=== PATIENT | female | born 1975 | race African-American/Black ===

== ENCOUNTER 2019-06-06 08:16 | Emergency (ER) | payer BC ==
[2019-06-06 08:23] VITALS: BMI 28.3
--- NOTE | 2019-06-06 08:48 | PDOC ---
History of Present Illness - General Chief Complaint: Vaginal Bleeding Stated Complaint: VAGINAL BLEEDING Time Seen by Provider: 06/06/19 08:35 History Source: Patient Exam Limitations: No Limitations - History of Present Illness Initial Comments: 06/06/19 08:46 44yo F with PMH of HTN, ZEYAD (has required iron transfusions in the past) presenting to ED with complaints of heavy vaginal bleeding x2d. Patient says she has been on her period for around 2w now which is unusual and yesterday she started to have heavier bleeding using a total of 8-10 tampons and pads. She says it has been soaking through and has noticed clots as well. Endorses cramping. She had a D+C October 2018 at [facility] because of painful cramping with menstruation. PMH: see hpi PSH: none Meds: FeSO4 Allergies: nkda Past History - Past Medical History Allergies/Adverse Reactions: Allergies Allergy/AdvReac Type Severity Reaction Status Date / Time No Known Allergies Allergy Verified 06/06/19 08:22 COPD: No HTN: Yes - Suicide/Smoking/Psychosocial Hx Smoking History: Current every day smoker Number of Cigarettes Smoked Daily: 1 Information on smoking cessation initiated: No Drug/Substance Use Hx: Yes ([id number]) Review of Systems - Review of Systems Constitutional: No: Symptoms Reported HEENTM: No: Symptoms Reported Respiratory: No: Symptoms reported Cardiac (ROS): Yes: Lightheadedness ABD/GI: Yes: Nausea. No: Rectal Bleeding, Vomiting, Abdominal cramping : Yes: Other (vaginal bleeding) Musculoskeletal: No: Symptoms Reported Integumentary: No: Symptoms Reported Neurological: No: Symptoms reported *Physical Exam - Vital Signs Last Vital Signs Temp Pulse Resp BP Pulse Ox 98.5 F 109 H 18 138/85 100 06/06/19 08:18 06/06/19 08:18 06/06/19 08:18 06/06/19 08:18 06/06/19 08:18 - Physical Exam General Appearance: Yes: Nourished, Appropriately Dressed. No: Apparent Distress HEENT: positive: EOMI, SHENG. negative: Pale Conjunctivae Neck: positive: Trachea midline, Supple. negative: Lymphadenopathy (R), Lymphadenopathy (L) Respiratory/Chest: positive: Lungs Clear, Normal Breath Sounds Cardiovascular: positive: Regular Rhythm, S1, S2, Tachycardia. negative: Edema , JVD, Murmur Vascular Pulses: Dorsalis-Pedis (R): 2+, Doralis-Pedis (L): 2+ Female Pelvic Exam: positive: normal external exam, vaginal bleeding (with clots ) Gastrointestinal/Abdominal: positive: Normal Bowel Sounds, Soft. negative: Tender, Guarding, Rebound, Tenderness Musculoskeletal: negative: CVA Tenderness Extremity: positive: Normal Capillary Refill. negative: Swelling, Calf Tenderness Integumentary: positive: Normal Color, Dry, Warm. negative: Pale Neurologic: positive: dialysis clinical manager II-XII NML intact, Fully Oriented, Alert, Normal Mood/ Affect, Normal Response, Motor Strength 02/28 ED Treatment Course - LABORATORY CBC & Chemistry Diagram: 06/06/19 09:15 06/06/19 09:15 Medical Decision Making - Medical Decision Making 06/06/19 12:04 44yo F with PMH of HTN, ZEYAD (has required iron transfusions in the past) presenting to ED with complaints of heavy vaginal bleeding x2d. Patient says she has been on her period for around 2w now which is unusual and yesterday she started to have heavier bleeding using a total of 8-10 tampons and pads. She says it has been soaking through and has noticed clots as well. Endorses cramping. She had a D+C October 2018 at [facility] because of painful cramping with menstruation. Vitals: tachycardia PE: blood pooling in vaginal vault, clots extracted. No abdominal tenderness. vaginal bleeding likely due to uterine structure abnormalities or premenopausal. patient is tachycardic and felt lightheaded, will order labs including cbc, cmp type an screen, serum . TVUS will give fluids and zofran for nausea. 06/06/19 12:38 TVUS: leiomyoma in posterior uterus. No other abnormalities. Patient was informed of results, advised to follow up with pack train driver, patient says she can make appointment tomorrow. Safe for dc home, h/h at baseline. Given strict return precautions including increasing bleeding, lightheadedness, syncope. patient agreed with plan. DC home *DC/Admit/Observation/Transfer Diagnosis at time of Disposition: Vaginal bleeding, Leiomyoma - Discharge Dispostion Disposition: HOME Condition at time of disposition: Good Decision to Admit order: No - Referrals - Patient Instructions Printed Discharge Instructions: DI for Uterine Fibroids Additional Instructions: You were seen in the emergency room today for vaginal bleeding. The ultrasound report showed a fibroid. I recommend that you follow up with your Manager Interventional tomorrow; let them know you were seen in the emergency room. Please come back to the emergency room if you are using more than 2 pads an hour , bleeding gets heavier, you are feeling lightheaded, you pass out or if any new concerning symptom develops. Thank you - Post Discharge Activity Forms/Work/School Notes: Back to Work
[2019-06-06] MEDS ORDERED: SODIUM CHLORIDE 1,000 ML IV STA (08:52)
--- NOTE | 2019-06-06 08:52 | PDOC ---
Attending Attestation - Resident Resident Name: LindaSaSelene - ED Attending Attestation I have performed the following: I have examined & evaluated the patient, The case was reviewed & discussed with the resident, I agree w/resident's findings & plan - HPI HPI: 06/06/19 09:10 44 YOF with PMH anemia presenting with heavy VB x 2 weeks with passage of dark red blood and clots, soaking her pads and tampons. has h/o anemia from DUB requiring iron infusion last in October 2018 as well as requiring iron supplements and D&C +dizziness and nausea no v/d, urinary sx, abdominal pain, headache, f/c, back pain. - Physicial Exam PE: 06/06/19 08:50 Agree with the resident's HPI and PE as documented in the electronic medical record. NAD, well appearing, EOMI, PERRL, MMM, nl conjunctiva, anicteric; neck supple. lungs clear, RRR, abdomen soft nontender. no flank tenderness. Back nontender. PINEDA x4, no focal neuro deficits. No peripheral edema. normal color for ethnicity , WWP. pelvic exam with resident, copious blood clots in the vaginal vault, no CMT, no adnexal tenderness. 06/06/19 09:11 - Medical Decision Making 06/06/19 08:51 hpi as documented VS reviewed, wnl Vital Signs Temp Pulse Resp BP Pulse Ox 98.5 F 109 H 18 138/85 100 06/06/19 08:18 06/06/19 08:18 06/06/19 08:18 06/06/19 08:18 06/06/19 08:18 DDX Considered: Adenomyosis, Cervicitis, Dysfunctional uterine bleeding, Ectopic , Endometrial cancer, Hydatidiform mole, Implantation bleeding , IUD/contraceptives, Miscarriage, Placental abruption, Placenta previa, Polycystic ovarian syndrome, Postcoital bleeding, hemorrhage, Retained products of conception, Uterine fibroids, Uterine polyp, Uterine rupture In evaluating this patient's complaint, multiple diagnoses were considered, including those listed above. labs and lytes normal, with mild anemia noted txs no indication for transfusion at this time with unchanged anemia per patient. pelvic sono to check for fibroids/structural abnormalities vs. perimenopausal sx and DUB small fibroid noted, otherwise unremarkable. VS rechecked and normal., normotensive, normal HR. Based on history, physical, clinical context, and any tests done today it is my judgment that the diagnosis/diagnoses considered do not apply to this patient and that the remaining diagnoses about either do not apply to this patient, or do not require additional emergent evaluation and treatment bleeding precautions, f/u director center tomorrow and call for appt, for DUB and further intervention if necessary. return precautions advised, DC stable condition 06/06/19 09:11 06/06/19 10:24 06/06/19 11:50
[2019-06-06] MEDS ORDERED: ONDANSETRON 4 MG/2 ML VIAL IVPB ONE (09:08)
[2019-06-06] MEDS ORDERED: ONDANSETRON 4 MG/2 ML VIAL ONE (09:28)
[2019-06-06 09:37] LABS: BASO % 0.6 % (0-2.0); EOS % 0.6 % (0-4.5); HEMATOCRIT 30.3 % (32.4-45.2); HEMOGLOBIN 10.2 GM/dL (10.7-15.3); LYMPH % 17.6 % (8-40); MCH 29.2 pg (25.7-33.7); MCHC 33.6 g/dl (32.0-36.0); MEAN CELL VOLUME 87.2 fl (80-96); MEAN PLT VOLUME 8.8 fl (7.5-11.1); MONO % 5.1 % (3.8-10.2); NEUT % 76.1 % (42.8-82.8); PLATELET COUNT 282 K/MM3 (134-434); RBC 3.48 M/mm3 (3.60-5.2); RDW 15.3 % (11.6-15.6); WHITE BLOOD COUNT 10.2 K/mm3 (4.0-10.0)
[2019-06-06 10:18] LABS: ALBUMIN 3.9 g/dl (3.4-5.0); BILIRUBIN,TOTAL 0.7 mg/dL (0.2-1); BLOOD UREA NITROGEN 8.6 mg/dL (7-18); CALCIUM 8.7 mg/dL (8.5-10.1); CREATININE 0.6 mg/dL (0.55-1.3); POTASSIUM 4.8 mmol/L (3.5-5.1); TOT PROT 7.4 g/dl (6.4-8.2)
[2019-06-06 11:16] VITALS: BP 132/78; PULSE 74; TEMP 98.7
== END 2019-06-06 11:43 | disposition home or self-care (01) ==
LOC: JER 08:16
PROC: 3E033GC Introduction of Other Therapeutic Substance into Peripheral Vein, Percutaneous Approach (ICD-10-PCS; principal; 2019-06-06)
PROC: 3E0337Z Introduction of Electrolytic and Water Balance Substance into Peripheral Vein, Percutaneous Approach (ICD-10-PCS; 2019-06-06)
DX: N93.9 Abnormal uterine and vaginal bleeding, unspecified (principal); D25.9 Leiomyoma of uterus, unspecified; I10 Essential (primary) hypertension; F17.210 Nicotine dependence, cigarettes, uncomplicated; I50.9 Heart failure, unspecified; R42 Dizziness and giddiness; R00.0 Tachycardia, unspecified
CPT/HCPCS: 36415; 76830-TC; 80053; 84703; 85025; 86850; 86900; 86901; 99283-25; J7030